=== PATIENT | female | born 1940 | race Two or more races ===

== ENCOUNTER 2020-10-19 11:45 | Inpatient (IN) | payer OTHER ==
[~2020-10-19] VITALS: Ht 162.6 cm; Wt 70.5 kg
[2020-10-19] MEDS ORDERED: AZITHROMYCIN 500MG/ 250ML 250 ML IV ONE (14:00)
[2020-10-19] MEDS ORDERED: SODIUM CHLORIDE 0.9% 1,000 ML IVB ONE (14:00)
[2020-10-19] MEDS ORDERED: DexAMETHasone SOD PHOS 10MG/1ML VIAL INJ IV ONE (14:00)
[2020-10-19] MEDS ORDERED: ONDANSETRON HCL 4 MG/2 ML VIAL ONE (14:41)
[2020-10-19 14:44] LABS: Basophils # (auto) 0 10 ^3/uL (0-0.2); Basophils % (auto) 0.1 % (0.0-2.0); Eosinophils # (auto) 0 10 ^3/uL (0-0.8); Eosinophils % (auto) 0.1 % (0.0-7.0); Hematocrit 31.2 % (36.0-46.0); Hemoglobin 11.2 g/dL (12.2-16.2); Lymphocytes # (auto) 0.8 10 ^3/uL (0.4-5.4); Lymphocytes % (auto) 11.2 % (10.0-50.0); Mean Corpuscular Hemoglobin 29.3 pg (28.0-32.0); Mean Corpuscular Volume 81.5 fL (80.0-100.0); Monocytes # (auto) 0.5 10 ^3/uL (0-1.3); Monocytes % (auto) 7.9 % (0.0-12.0); Neutrophils # (auto) 5.6 10 ^3/uL (1.6-8.6); Neutrophils % (auto) 80.7 % (37.0-80.0); Platelet Count (auto) 153 10^3/uL (140-450); Red Blood Cells 3.83 10^6/uL (4.0-5.20); Red Cell Distribution Width 12.6 % (11.8-14.3); White Blood Cell 6.9 10^3/uL (4.4-10.8)
[2020-10-19 15:04] LABS: INR 1.01 (0.9-1.15); Partial Thromboplastin Time 26.6 sec (23.0-31.2)
[2020-10-19 15:13] LABS: Albumin 3.3 g/dL (3.4-5.0); Anion Gap 13 (5-15); Blood Urea Nitrogen 16 mg/dL (7-18); Carbon Dioxide 20 mmol/L (21-32); Chloride 87 mmol/L (98-107); Glucose 115 mg/dL (74-106); Potassium 3.6 mmol/L (3.5-5.1); Sodium 120 mmol/L (136-145)
[2020-10-19 15:16] LABS: Alanine Aminotransferase 41 U/L (13-56); Aspartate Aminotransferase 52 U/L (15-37); BUN/Creatinine Ratio 26.2; GFR African American 122 mL/min; GFR Non-African American 101 mL/min; Magnesium 1.6 mg/dL (1.6-2.6)
[2020-10-19 15:24] LABS: Alkaline Phosphatase 54 U/L (45-117); Bilirubin, Total 0.7 mg/dL (0.2-1.0); Total Protein 6.6 g/dL (6.4-8.2)
[2020-10-19 16:42] LABS: Urine Bacteria NONE SEEN /hpf (None Seen); Urine Blood Negative /uL (Negative); Urine Mucus FEW (None Seen); Urine Specific Gravity 1.021 (1.001-1.035); Urine WBC 3 /hpf (0 - 5)
[2020-10-19] MEDS ORDERED: MORPHINE SULF INJ 2 MG/ML SYRINGE 1ML IV PRN ×2 (17:30)
[2020-10-19] MEDS ORDERED: ONDANSETRON HCL 4 MG/2 ML VIAL IV PRN (17:30)
[2020-10-19] MEDS ORDERED: ACETAMINOPHEN 500 MG TAB PO PRN ×2 (17:30)
[2020-10-19] MEDS ORDERED: HYDROcodone-ACET 5/325MG TAB PO PRN (17:30)
[2020-10-19] MEDS ORDERED: NITROGLYCERIN 0.4 MG SL TAB SL PRN (17:30)
[2020-10-19] MEDS: BUDESONIDE (INHALATION) 180 MCG IH IN SCH (18:08)
[2020-10-19] MEDS: ALBUTEROL SULF HFA 90MCG INH 200DOSE IN PRN (18:08)
[2020-10-19 18:59] LABS: CRP High Sensitivity 0.32 mg/dL (< 0.3)
[2020-10-19 19:00] VITALS: BP 119/84
[2020-10-19] MEDS: ENOXAPARIN SOD 40 MG/0.4 ML SYRINGE SC SCH (22:01)
[2020-10-19] MEDS ORDERED: LISI40TA11 PO (23:31)
[2020-10-19] MEDS ORDERED: ATOR40TA52 PO (23:31)
[2020-10-19] MEDS ORDERED: ASCO500T11 PO (23:31)
[2020-10-20] VITALS: BP 118/74
[2020-10-20] MEDS ORDERED: IVERMECTIN 3 MG TAB PO ONE (07:00)
[2020-10-20 08:00] VITALS: BP 147/76
[2020-10-20 08:02] LABS: Basophils # (auto) 0 10 ^3/uL (0-0.2); Basophils % (auto) 0.1 % (0.0-2.0); Eosinophils # (auto) 0 10 ^3/uL (0-0.8); Hematocrit 32.8 % (36.0-46.0); Hemoglobin 11.9 g/dL (12.2-16.2); Lymphocytes % (auto) 16.1 % (10.0-50.0); Mean Corpuscular Hemoglobin 29.3 pg (28.0-32.0); Mean Corpuscular Hgb Conc. 36.3 g/dL (32.0-36.0); Mean Corpuscular Volume 80.7 fL (80.0-100.0); Monocytes # (auto) 0.7 10 ^3/uL (0-1.3); Monocytes % (auto) 11.1 % (0.0-12.0); Neutrophils # (auto) 4.5 10 ^3/uL (1.6-8.6); Neutrophils % (auto) 72.7 % (37.0-80.0); Nucleated Red Blood Cells % 0.2 %; Platelet Count (auto) 178 10^3/uL (140-450); Red Blood Cells 4.06 10^6/uL (4.0-5.20); Red Cell Distribution Width 12.4 % (11.8-14.3); White Blood Cell 6.3 10^3/uL (4.4-10.8)
[2020-10-20 08:33] LABS: Albumin 3.1 g/dL (3.4-5.0); BUN/Creatinine Ratio 15.9; Bilirubin, Total 0.6 mg/dL (0.2-1.0); Calcium 8.2 mg/dL (8.5-10.1); Potassium 3.7 mmol/L (3.5-5.1); Total Protein 7.2 g/dL (6.4-8.2)
[2020-10-20] MEDS: FAMOTIDINE 20 MG TAB PO SCH (08:54)
[2020-10-20] MEDS: ASCORBIC ACID 1,000 MG TAB PO SCH (08:54)
[2020-10-20] MEDS: CHOLECALCIFEROL (VITD3) 2,000 UNIT CAP/TAB PO SCH (08:55)
[2020-10-20] MEDS: cefTRIAXone 1GM/50ML D5W 50 ML IV SCH (08:55)
[2020-10-20] MEDS: DexAMETHasone SOD PHOS 10MG/1ML VIAL INJ IV SCH (08:55)
[2020-10-20] MEDS: ZINC SULFATE 220mg CAP or TAB PO SCH (08:55)
[2020-10-20] MEDS: BUDESONIDE (INHALATION) 180 MCG IH IN SCH ×2 (09:05→20:02)
[2020-10-20] MEDS: ENOXAPARIN SOD 40 MG/0.4 ML SYRINGE SC SCH ×2 (09:15→22:17)
[2020-10-20] MEDS: AZITHROMYCIN 500MG/ 250ML 250 ML IV SCH (10:30)
[2020-10-20 16:00] VITALS: BP 153/73
[2020-10-20] MEDS: ALBUTEROL SULF HFA 90MCG INH 200DOSE IN PRN (20:53)
[2020-10-21] VITALS: BP 118/74
[2020-10-21] MEDS: ALBUTEROL SULF HFA 90MCG INH 200DOSE IN PRN (06:52)
[2020-10-21] MEDS: BUDESONIDE (INHALATION) 180 MCG IH IN SCH (06:52)
[2020-10-21 08:00] VITALS: BP 143/76
[2020-10-21] MEDS: ASCORBIC ACID 1,000 MG TAB PO SCH (09:30)
[2020-10-21] MEDS: ZINC SULFATE 220mg CAP or TAB PO SCH (09:30)
[2020-10-21] MEDS: DexAMETHasone SOD PHOS 10MG/1ML VIAL INJ IV SCH (09:30)
[2020-10-21] MEDS: cefTRIAXone 1GM/50ML D5W 50 ML IV SCH (09:30)
[2020-10-21] MEDS: CHOLECALCIFEROL (VITD3) 2,000 UNIT CAP/TAB PO SCH (09:30)
[2020-10-21] MEDS: ENOXAPARIN SOD 40 MG/0.4 ML SYRINGE SC SCH (09:30)
[2020-10-21] MEDS: FAMOTIDINE 20 MG TAB PO SCH (09:30)
[2020-10-21] MEDS: AZITHROMYCIN 500MG/ 250ML 250 ML IV SCH (11:30)
[2020-10-21 13:29] VITALS: BP 132/83
[2020-10-21 16:00] VITALS: BP 143/81
== END 2020-10-21 17:48 | disposition home or self-care (01) | DRG 177 ==
LOC: ER 11:45 → TELE-WESTW 17:29
PROVIDERS: ADMIT Nurse Practitioner Acute Care; ATTEND Family Medicine
DX: U07.1 COVID-19 (principal); J12.82 Pneumonia due to coronavirus disease 2019; J96.01 Acute respiratory failure with hypoxia; E87.1 Hypo-osmolality and hyponatremia; D64.9 Anemia, unspecified; I10 Essential (primary) hypertension; R19.7 Diarrhea, unspecified; E78.5 Hyperlipidemia, unspecified; E78.00 Pure hypercholesterolemia, unspecified; Z90.49 Acquired absence of other specified parts of digestive tract
CPT/HCPCS: 36415; 71045; 80053; 80061; 81001; 82728; 83605; 83615; 83735; 83880; 84443; 84484; 85025; 85379; 85610; 85730; 86141; 87040; 87081; 87426; 93005; 94640; 96361; 96365; G0378; J0696; J1100; J2405